=== PATIENT | female | born 1985 | race Hispanic/Latino ===

== ENCOUNTER 2020-12-01 10:22 | Inpatient (IN) | payer BC ==
[2020-12-01] MEDS ORDERED: Docusate 100 MG CAP PO PRN (10:33)
[2020-12-01] MEDS ORDERED: Butorphanol Tartrate 1 MG/ML VIAL SLOW IVP PRN (10:33)
[2020-12-01] MEDS ORDERED: Acetaminophen 500 MG TAB PO PRN (10:33)
[2020-12-01] MEDS ORDERED: HYDROcodone/Acetaminophen 5/325 mg Tablet PO PRN ×2 (10:33)
[2020-12-01] MEDS ORDERED: Diphenoxylate HCl/Atropine Tablet PO PRN ×2 (10:33)
[2020-12-01] MEDS ORDERED: Ibuprofen 800 MG TAB PO PRN (10:33)
[2020-12-01] MEDS ORDERED: Promethazine HCl 25 MG/ML VIAL IM PRN (10:33)
[2020-12-01] MEDS ORDERED: hydrALAZINE 20 MG/ML VIAL SLOW IVP PRN (10:33)
[2020-12-01] MEDS ORDERED: Misoprostol 200 MCG TAB PR PRN (10:33)
[2020-12-01] MEDS ORDERED: Lidocaine 1% (PF) 30 ML VIAL SC PRN (10:33)
[2020-12-01] MEDS ORDERED: Ondansetron PF 4 MG/2 ML Vial IVP PRN (10:33)
[2020-12-01] MEDS ORDERED: NS / Oxytocin 40 units/1000ml 1,000 ML IV PRN (10:33)
[2020-12-01] MEDS ORDERED: Penicillin G Potassium 5 MILL.UNITS in Sodium Chloride 0.9% 100 ML IVPB SCH (10:45)
[2020-12-01 12:20] LABS: Hemoglobin 13.4 g/dL (12.0-15.5); Mean Corpuscular HGB CONC 33.8 g/dL (32.0-36.0); Mean Corpuscular Hemoglobin 30.1 pg (27.0-33.0); Mean Corpuscular Volume 89.2 fl (81.6-98.3); Platelet Count 210 10x3/uL (150-450); Red Blood Cell (RBC) Count 4.45 10x6/uL (3.90-5.03); White Blood Cell (WBC) Count 10.5 10x3/uL (3.5-10.5)
[2020-12-01] MEDS ORDERED: NS w/ Oxytocin 30 units 500 ML ONE (12:26)
[2020-12-01] MEDS ORDERED: Penicillin G Potassium 5 MILL.UNITS VIAL ONE (12:26)
[2020-12-01 12:58] LABS: Syphilis Antibody Nonreactive (Nonreactive); Syphilis Antibody Index 0.05 S/CO (<1.00 Non-Reactive)
[2020-12-01 12:59] LABS: Hep B Surf Ag Non-Reactive S/CO (NonReactive)
[2020-12-01 13:16] LABS: HBSAg Index 0.13 S/CO (0-0.99)
[2020-12-01 16:33] VITALS: BMI 37.8
[2020-12-01] MEDS: Penicillin G 2.5 MILL.units 2.5 MILL.UNITS in Premix Bag 1 BAG IVPB SCH (16:40)
[2020-12-01] MEDS: Lactated Ringer's 1,000 ML IV SCH (19:32)
[2020-12-01] MEDS ORDERED: Bupivacaine HCl 0.5%/Epinephrine 1:200,000/PF 30 ml Vial ONE (19:51)
[2020-12-01] MEDS ORDERED: Lidocaine 2% PF 5 ML VIAL ONE (19:51)
[2020-12-01] MEDS ORDERED: Bupivacaine 0.25% HCL 30 ML VIAL ONE (19:51)
[2020-12-02] MEDS: Penicillin G 2.5 MILL.units 2.5 MILL.UNITS in Premix Bag 1 BAG IVPB SCH ×2 (00:04→08:45)
[2020-12-02] MEDS ORDERED: Fentanyl 4 mcg/Bup 0.1% Cadd 100 ML ONE ×2 (00:34→07:52)
[2020-12-02] MEDS: Lactated Ringer's 1,000 ML IV SCH (01:05)
[2020-12-02] MEDS ORDERED: Magnesium Sulfate 20 gm/500 ml 20 GM/500 ML BAG ONE (11:01)
[2020-12-02] MEDS ORDERED: Clindamycin/D5W 900 mg/50 ml Premix Bag ONE (11:02)
[2020-12-02] MEDS ORDERED: Calcium Gluconate 4.6 MEQ in Sodium Chloride 0.9% 100 ML IVPB PRN (11:03)
[2020-12-02] MEDS ORDERED: Morphine PF 10 MG/10 ML VIAL ONE ×2 (11:11→12:16)
[2020-12-02] MEDS ORDERED: ePHEDrine Sulfate 50 MG/10 ML VIAL ONE (11:11)
[2020-12-02] MEDS ORDERED: Phenylephrine 10 MG/ML VIAL ONE (11:11)
[2020-12-02] MEDS ORDERED: Ondansetron PF 4 MG/2 ML Vial ONE (11:11)
[2020-12-02] MEDS ORDERED: Ketorolac Tromethamine 30 MG/ML VIAL ONE (11:11)
[2020-12-02] MEDS ORDERED: Fentanyl 100 MCG/2 ML VIAL ONE (11:11)
[2020-12-02] MEDS ORDERED: Dexamethasone 4 mg/ml Vial ONE (11:11)
[2020-12-02] MEDS ORDERED: Oxytocin 10 UNITS/ML VIAL ONE ×2 (11:12→12:02)
[2020-12-02] MEDS ORDERED: Magnesium Sulfate 20 GM/WATER 500 ML BAG IVPB SCH (11:15)
[2020-12-02] MEDS ORDERED: Clindamycin/D5W 900 MG in Premix Bag 1 BAG IVPB SCH (11:15)
[2020-12-02] MEDS ORDERED: Gentamicin Sulfate 80 MG in Premix Bag 1 BAG IVPB SCH (11:15)
[2020-12-02] MEDS ORDERED: Magnesium Sulfate 20 gm/500 ml 20 GM/500 ML BAG IVPB SCH ×3 (11:15→23:00)
[2020-12-02] MEDS ORDERED: PHENYLEPHRINE-NS 100 MCG/ML 10 ML SYRINGE ONE (11:40)
[2020-12-02] MEDS ORDERED: Carboprost 250 MCG/ML AMP ONE (11:46)
[2020-12-02] MEDS ORDERED: Tranexamic Acid 1,000 MG/10 ML VIAL ONE (11:47)
[2020-12-02] MEDS ORDERED: Morphine 4 MG/ML VIAL ONE (12:16)
[2020-12-02] MEDS ORDERED: Glycopyrrolate 0.2 MG/ML 5 ML SYRINGE ONE (12:24)
[2020-12-02] MEDS ORDERED: Acetaminophen 325 MG TAB PO PRN (12:25)
[2020-12-02] MEDS ORDERED: Adacel (T-DAP) 0.5 ML SYRINGE IM ONE (12:25)
[2020-12-02] MEDS ORDERED: hydrALAZINE 20 MG/ML VIAL SLOW IVP PRN (12:25)
[2020-12-02] MEDS ORDERED: Ondansetron PF 4 MG/2 ML Vial IVP PRN ×2 (12:25→12:55)
[2020-12-02] MEDS ORDERED: Simethicone Chewable 80 MG TAB PO PRN (12:25)
[2020-12-02] MEDS ORDERED: Zolpidem Tartrate 5 MG TAB PO PRN ×2 (12:25→12:55)
[2020-12-02] MEDS ORDERED: Calcium Gluc 4.6 MEQ/10 ML (100 MG/ML) SLOW IVP PRN (12:25)
[2020-12-02] MEDS ORDERED: HYDROcodone/Acetaminophen 5/325 mg Tablet PO PRN ×2 (12:25)
[2020-12-02] MEDS ORDERED: diphenhydrAMINE 25 MG CAP PO PRN ×2 (12:25→12:55)
[2020-12-02] MEDS ORDERED: Bisacodyl 10 MG SUPP PR PRN (12:25)
[2020-12-02] MEDS ORDERED: Misoprostol 200 MCG TAB PR PRN (12:25)
[2020-12-02] MEDS ORDERED: NS / Oxytocin 40 units/1000ml 1,000 ML IV SCH (12:30)
[2020-12-02] MEDS ORDERED: Lactated Ringer's 1,000 ML IV SCH (12:30)
[2020-12-02] MEDS ORDERED: SUGAMMADEX SODIUM 500 MG/5 ML VIAL ONE (12:32)
[2020-12-02] MEDS ORDERED: diphenhydrAMINE 50 MG/ML VIAL IVP PRN (12:55)
[2020-12-02] MEDS ORDERED: Naloxone HCl 0.4 mg/ml Vial IV PRN (12:55)
[2020-12-02] MEDS ORDERED: Promethazine HCl 25 MG/ML VIAL IM PRN (12:55)
[2020-12-02] MEDS ORDERED: diphenhydrAMINE 50 MG/ML VIAL IM PRN (12:55)
[2020-12-02] MEDS ORDERED: fentaNYL Citrate/PF 1,000 MCG in Sodium Chloride 0.9% 30 ML IV PRN (12:55)
[2020-12-02] MEDS ORDERED: Communication Order-Pharmacy FS SCH (13:00)
[2020-12-02] MEDS ORDERED: Ibuprofen 800 MG TAB PO SCH (14:00)
[2020-12-02 14:34] LABS: pH (Cord, venous) 7.264 (7.250-7.350)
[2020-12-02 15:52] LABS: SARS-CoV-2 PCR by NAA Not Detected (NotDetected)
[2020-12-02] MEDS ORDERED: Labetalol 100 MG TAB PO SCH (16:00)
[2020-12-02] MEDS ORDERED: Ketorolac Tromethamine 30 MG/ML VIAL IVP SCH (18:00)
[2020-12-02] MEDS ORDERED: Docusate Calcium (SURFAK) 240 MG CAP PO SCH (21:00)
[2020-12-02] MEDS ORDERED: Ferrous Sulfate 325 MG TAB PO SCH (21:00)
[2020-12-02] MEDS ORDERED: NS w/ Oxytocin 30 units 500 ML ONE (21:35)
[2020-12-03 05:54] LABS: Mean Corpuscular HGB CONC 32.9 g/dL (32.0-36.0); Mean Corpuscular Hemoglobin 30.1 pg (27.0-33.0); Mean Corpuscular Volume 91.6 fl (81.6-98.3); Mean Platelet Volume 11.1 fl (7.4-10.4); Platelet Count 165 10x3/uL (150-450); RBC Distribution Width 13.4 % (11.5-14.5); Red Blood Cell (RBC) Count 3.32 10x6/uL (3.90-5.03); White Blood Cell (WBC) Count 16.2 10x3/uL (3.5-10.5)
[2020-12-03] MEDS ORDERED: HYDROcodone/Acetaminophen 5/325 mg Tablet PO PRN (07:09)
[2020-12-03] MEDS ORDERED: Bisacodyl 10 MG SUPP PR PRN (07:09)
[2020-12-03] MEDS ORDERED: Ondansetron PF 4 MG/2 ML Vial IVP PRN (07:09)
[2020-12-03] MEDS ORDERED: Simethicone Chewable 80 MG TAB PO PRN (07:09)
[2020-12-03] MEDS ORDERED: Lanolin Ointment 7 GM TUBE TOP PRN (07:09)
[2020-12-03] MEDS ORDERED: Adacel (T-DAP) 0.5 ML SYRINGE IM ONE (07:09)
[2020-12-03] MEDS ORDERED: Misoprostol 200 MCG TAB PR PRN (07:09)
[2020-12-03] MEDS ORDERED: Acetaminophen 325 MG TAB PO PRN (07:09)
[2020-12-03] MEDS ORDERED: hydrALAZINE 20 MG/ML VIAL SLOW IVP PRN (07:09)
[2020-12-03] MEDS ORDERED: Labetalol HCl 200 MG TAB PO SCH (09:45)
[2020-12-03] MEDS: Prenatal Vitamin 1 TAB PO SCH (09:58)
[2020-12-03] MEDS: Docusate Calcium (SURFAK) 240 MG CAP PO SCH ×2 (09:58→21:45)
[2020-12-03] MEDS: Penicillin G 2.5 MILL.units 2.5 MILL.UNITS in Premix Bag 1 BAG IVPB SCH ×2 (10:34→10:35)
[2020-12-03] MEDS: Ibuprofen 800 MG TAB PO SCH ×2 (10:34→17:35)
[2020-12-03] MEDS: HYDROcodone/Acetaminophen 5/325 mg Tablet PO PRN ×3 (13:12→21:45)
[2020-12-04] MEDS: Ibuprofen 800 MG TAB PO SCH ×2 (03:37→12:00)
[2020-12-04] MEDS: HYDROcodone/Acetaminophen 5/325 mg Tablet PO PRN ×2 (03:37→13:45)
[2020-12-04 07:01] LABS: Hemoglobin 9.3 g/dL (12.0-15.5); Mean Corpuscular HGB CONC 32.4 g/dL (32.0-36.0); Mean Corpuscular Volume 92.6 fl (81.6-98.3); Mean Platelet Volume 11.6 fl (7.4-10.4); Platelet Count 167 10x3/uL (150-450); RBC Distribution Width 14.1 % (11.5-14.5); White Blood Cell (WBC) Count 11.6 10x3/uL (3.5-10.5)
[2020-12-04] MEDS: Docusate Calcium (SURFAK) 240 MG CAP PO SCH (09:44)
[2020-12-04] MEDS: Prenatal Vitamin 1 TAB PO SCH (09:44)
[2020-12-04 16:27] VITALS: BP 145/73; TEMP 98.6
== END 2020-12-04 18:00 | disposition home or self-care (01) | DRG 787 ==
LOC: CSHLD/OP 10:22 → CSHLD 10:23 → CSHPP 12-03 11:04
PROVIDERS: ADMIT Obstetrics & Gynecology; ATTEND Obstetrics & Gynecology
PROC: 10907ZC Drainage of Amniotic Fluid, Therapeutic from Products of Conception, Via Natural or Artificial Opening (ICD-10-PCS; 2020-12-01)
PROC: 3E033VJ Introduction of Other Hormone into Peripheral Vein, Percutaneous Approach (ICD-10-PCS; 2020-12-01)
PROC: 3E0P7VZ Introduction of Hormone into Female Reproductive, Via Natural or Artificial Opening (ICD-10-PCS; 2020-12-01)
PROC: 10D00Z1 Extraction of Products of Conception, Low, Open Approach (ICD-10-PCS; principal; 2020-12-02)
DX: O14.14 Severe pre-eclampsia complicating childbirth (principal); O99.354 Diseases of the nervous system complicating childbirth; Z20.822 Contact with and (suspected) exposure to COVID-19; G43.909 Migraine, unspecified, not intractable, without status migrainosus; O99.62 Diseases of the digestive system complicating childbirth; O99.52 Diseases of the respiratory system complicating childbirth; O99.824 Streptococcus B carrier state complicating childbirth; F42.9 Obsessive-compulsive disorder, unspecified; K21.9 Gastro-esophageal reflux disease without esophagitis; J45.909 Unspecified asthma, uncomplicated; O32.4XX0 Maternal care for high head at term, not applicable or unspecified; O33.9 Maternal care for disproportion, unspecified; O69.81X0 Labor and delivery complicated by cord around neck, without compression, not applicable or unspecified; O61.0 Failed medical induction of labor; O70.0 First degree perineal laceration during delivery; Z3A.39 39 weeks gestation of pregnancy; Z37.0 Single live birth; Z88.8 Allergy status to other drugs, medicaments and biological substances; Z88.2 Allergy status to sulfonamides; Z91.040 Latex allergy status; O99.344 Other mental disorders complicating childbirth
CPT/HCPCS: 51702; 82805; 83735; 85027; 86780; 86850; 86900; 86901; 87340; 87635; J0360; J1100; J1885; J2001; J2270; J2370; J2405; J2540; J2590; J3010; J3490; S0020; U0003; U0005

== ENCOUNTER 2025-04-30 05:39 | Observation (INO) | payer BC ==
[2025-04-25 16:42] LABS: Hematocrit 39.0 % (34.9-44.5); Hemoglobin 12.8 g/dL (12.0-15.5); Mean Corpuscular Hemoglobin 30.8 pg (27.0-33.0); Mean Corpuscular Volume 94.0 fL (81.6-98.3); Platelet Count 205 10x3/uL (150-450); Red Blood Cell (RBC) Count 4.15 10x6/uL (3.90-5.03); White Blood Cell (WBC) Count 6.03 10x3/uL (3.5-10.5)
[2025-04-25 17:20] LABS: BHCG - Serum Negative (NEGATIVE); Pregs Control Background? CLEAR/WHITE (CLR/WHITE); Pregs Control Bar Appear? YES (CONTROL BAR)
[2025-04-25 17:43] LABS: Glucose, Urine (Dipstick) Normal (Negative); Leukocyte Negative (Negative); Protein, Urine (Dipstick) Negative (Neg-Trace); Specific Gravity, Urine 1.010 (1.005-1.030)
[2025-04-30] MEDS ORDERED: PROPOFOL 20 ML ONE (06:24)
[2025-04-30] MEDS ORDERED: Rocuronium Bromide 10 MG/ML (10ML VIAL) ONE (06:25)
[2025-04-30] MEDS ORDERED: Ondansetron PF 4 MG/2 ML Vial ONE ×2 (06:25→14:04)
[2025-04-30] MEDS ORDERED: Bupivacaine HCl 0.5%/Epinephrine 1:200,000/PF 30 ml Vial ONE (06:40)
[2025-04-30] MEDS ORDERED: CEFAZOLIN 2 GM VIAL ONE (06:41)
[2025-04-30] MEDS ORDERED: Lidocaine 2% MPF 10 ML AMP (For Epidural Use) ONE (07:38)
[2025-04-30] MEDS ORDERED: PHENYLEPHRINE-NS 100 MCG/ML 10 ML SYRINGE ONE (07:49)
[2025-04-30] MEDS ORDERED: Ketorolac Tromethamine 30 MG (1 mL) VIAL ONE ×2 (07:51→14:35)
[2025-04-30] MEDS ORDERED: SUGAMMADEX SODIUM 200 MG/2 ML VIAL ONE (07:51)
[2025-04-30] MEDS ORDERED: HYDROmorphone 0.5 MG/0.5 ML SYRINGE ONE (09:30)
[2025-04-30] MEDS ORDERED: HYDROcodone/Acetaminophen 5/325 mg Tablet ONE ×2 (10:04→16:04)
[2025-04-30 12:27] LABS: Hematocrit 37.1 % (34.9-44.5); Hemoglobin 12.6 g/dL (12.0-15.5); Mean Corpuscular Hemoglobin 31.3 pg (27.0-33.0); Mean Corpuscular Volume 92.1 fL (81.6-98.3); Platelet Count 165 10x3/uL (150-450); Red Blood Cell (RBC) Count 4.03 10x6/uL (3.90-5.03); White Blood Cell (WBC) Count 12.88 10x3/uL (3.5-10.5)
[2025-04-30] MEDS: GENTAMICIN SULFATE IVPB SCH (18:57)
[2025-04-30] MEDS: SODIUM CHLORIDE 0.9% IVPB SCH (18:57)
[2025-04-30] MEDS ORDERED: diphenhydrAMINE 50 MG/ML VIAL IVP PRN (19:27)
[2025-04-30] MEDS ORDERED: diphenhydrAMINE 25 MG CAP PO PRN (19:28)
[2025-04-30] MEDS ORDERED: Ondansetron HCl/PF 8 MG, Admixture Fee 1 EACH in Sodium Chloride 0.9% 50 ML IVPB PRN (19:33)
[2025-04-30] MEDS: Ketorolac Tromethamine 30 MG (1 mL) VIAL IVP SCH (21:20)
[2025-04-30] MEDS: HYDROcodone/Acetaminophen 7.5/325 mg Tablet PO PRN (23:05)
[2025-05-01 08:37] VITALS: BP 105/52; TEMP 98.2
[2025-05-01] MEDS: Ibuprofen 800 MG TAB PO SCH (09:05)
== END 2025-05-01 10:22 | disposition home or self-care (01) ==
LOC: CSHSDC 05:39 → CSHPED 17:12
PROVIDERS: ADMIT Obstetrics & Gynecology; ATTEND Obstetrics & Gynecology
DX: D25.1 Intramural leiomyoma of uterus (principal); N72 Inflammatory disease of cervix uteri; N87.9 Dysplasia of cervix uteri, unspecified; N88.8 Other specified noninflammatory disorders of cervix uteri; N73.6 Female pelvic peritoneal adhesions (postinfective); N80.03 Adenomyosis of the uterus; N80.00 Endometriosis of the uterus, unspecified; N80.329 Endometriosis of the posterior cul-de-sac, unspecified depth; N80.101 Endometriosis of right ovary, unspecified depth; N80.203 Endometriosis of bilateral fallopian tubes, unspecified depth; F41.9 Anxiety disorder, unspecified; F32.A Depression, unspecified; F42.9 Obsessive-compulsive disorder, unspecified; M06.9 Rheumatoid arthritis, unspecified; G43.909 Migraine, unspecified, not intractable, without status migrainosus; J45.909 Unspecified asthma, uncomplicated; Z87.59 Personal history of other complications of pregnancy, childbirth and the puerperium; Z90.89 Acquired absence of other organs; Z90.49 Acquired absence of other specified parts of digestive tract; Z91.040 Latex allergy status; Z88.2 Allergy status to sulfonamides; Z88.1 Allergy status to other antibiotic agents; Z79.51 Long term (current) use of inhaled steroids; Z79.899 Other long term (current) drug therapy
CPT/HCPCS: 81003; 84703; 85027; 86850; 86900; 86901; 88307; C1776; J1100; J1171; J1580; J1885; J2250; J2270; J2272; J2405; J2550; J2704; J3010; J3490; S2900